=== PATIENT | female | born 1930 | race Caucasian/White ===

== ENCOUNTER 2017-06-27 08:31 | Inpatient (IN) | payer OTHER ==
[~2017-06-27] VITALS: Ht 167.6 cm; Wt 72.0 kg
[~2017-06-27 08:31] MED LIST: ALPRAZOLAM0.25 M2 PO; ALPRAZOLAM0.25 MG PO; ANTIVERT25 MG PO; CARDIZEM CD,CA240 MG PO; CARTIA XT180 MG PO; CIPROFLOXACIN250 MG PO; COUMADIN5 MG PO; CRANBERRY; CRANBERRY400 MG PO; CRANBERRY450 M1 PO; Cardizem CD,Cartia X PO; Cardizem CD,Cartia XT,Tiazac PO; Ceftin PO; Coumadin,Jantoven PO; Cranberry Extract PO; DILACOR PO; DILT PO; DILTIAZEM 24HR120 MG PO; DILTIAZEM 24HR180 MG PO; DILTIAZEM 24HR240 MG PO; FISH OIL CONC1 EACH PO; GABAPENTIN600 MG PO; INDOMETHACIN25 MG PO; KEFLEX500 MG PO; LEVAQUIN500 MG PO; LEVOFLOXACIN750 MG PO; LIDODERM 5% P1 PATCH TD; Lipitor PO; MECLIZINE HCL25 MG PO; METOPROLOL SUCC50 MG PO; NEURONTIN600 MG PO; NEXIUM40 MG PO; NORCO 5/3251 TABLET PO; Neurontin PO; Ocean Nasal 0.65% BOTH NARES; PHENAZOPYRIDIN200 MG PO; PLAVIX75 MG PO; PRAVASTATIN SOD40 MG PO; XANAX0.25 MG PO; XARELTO15 MG PO; Xanax PO; Xarelto PO; ZOFRAN ODT4 MG PO
[2017-06-27 08:59] LABS: HEMATOCRIT 51.4 % (36.0-46.0); MCH 29.7 PG (29.0-34.0); MCHC 32.5 G/DL (30.0-36.0); MCV 91.5 FL (83-99); RBC DIS.WIDTH-CV 13.9 % (11.8-14.6); RBC DIS.WIDTH-SD 47.2 % (39-53); RED BLOOD COUNT 5.62 M/uL (3.80-5.20); WHITE BLOOD COUNT 4.2 K/uL (4.1-10.2)
[2017-06-27 09:24] LABS: TROP-I INTERPRETATION NEGATIVE; TROPONIN-I < 0.01 ng/mL (0.0-0.30)
[2017-06-27 09:26] LABS: CHLORIDE 109 mEq/L (99-109); POTASSIUM 4.8 mEq/L (3.7-5.4); SODIUM 141 mEq/L (136-147)
[2017-06-27 09:28] LABS: GLUCOSE 107 mg/dL (70-99)
[2017-06-27 09:30] LABS: ANION GAP 5 MEQ/L (2-14); TOTAL BILIRUBIN 0.4 mg/dL (0.0-1.0)
[2017-06-27 09:32] LABS: ALKALINE PHOSPHATASE 149 IU/L (3-129); GFR ESTIMATE (CALCULATED) > 59 mL/min/
[2017-06-27 09:33] LABS: UREA NITROGEN (BUN) 12 mg/dL (9-23)
[2017-06-27 10:05] LABS: MEAN PLAT.VOLUME 12.1 uM^3 (9.5-12.4); PLATELET COUNT 229 K/uL (156-360)
[2017-06-27] MEDS ORDERED: DILTIAZEM 24HR360 M1 PO (13:58)
[2017-06-27] MEDS ORDERED: AVENTYL,PAMELOR10 MG PO (14:03)
[2017-06-27] MEDS ORDERED: ESOMEPRAZOLE MA40 MG PO (14:03)
[2017-06-27] MEDS ORDERED: FISH OIL 1,0001 EAC7 PO (14:06)
[2017-06-27 14:48] VITALS: BP 150/80
[2017-06-27 16:09] LABS: TROP-I INTERPRETATION NEGATIVE; TROPONIN-I < 0.01 ng/mL (0.0-0.30)
[2017-06-27 19:15] VITALS: BP 127/96
[2017-06-27 21:26] LABS: TROP-I INTERPRETATION NEGATIVE; TROPONIN-I < 0.01 ng/mL (0.0-0.30)
[2017-06-28 00:17] VITALS: BP 128/74
[2017-06-28 04:10] VITALS: BP 166/82
[2017-06-28 07:23] VITALS: BP 184/98
[2017-06-28 08:34] LABS: HEMATOCRIT 47.2 % (36.0-46.0); MCHC 31.6 G/DL (30.0-36.0); MCV 91.8 FL (83-99); RBC DIS.WIDTH-CV 14.1 % (11.8-14.6); RBC DIS.WIDTH-SD 47.3 % (39-53); RED BLOOD COUNT 5.14 M/uL (3.80-5.20); WHITE BLOOD COUNT 5.1 K/uL (4.1-10.2)
[2017-06-28 08:58] LABS: MEAN PLAT.VOLUME 12.1 uM^3 (9.5-12.4); PLAT.SUFFICIENCY ADEQUATE; PLATELET COUNT 203 K/uL (156-360)
[2017-06-28 09:18] LABS: ANION GAP 5 MEQ/L (2-14); CHLORIDE 107 MEQ/L (99-109); GFR ESTIMATE (CALCULATED) 56 mL/min/; GLUCOSE 97 mg/dL (70-99); POTASSIUM 4.2 MEQ/L (3.7-5.4); SAMPLE HEMOLYSIS CHECK 0; SAMPLE ICTERIC CHECK 0; SAMPLE LIPEMIA CHECK 0; SODIUM 140 MEQ/L (136-147); UREA NITROGEN (BUN) 13 mg/dL (9-23)
[2017-06-28 11:06] VITALS: BP 134/76
[2017-06-28 15:45] VITALS: BP 134/79
[2017-06-28 19:15] VITALS: BP 156/83
[2017-06-29 00:10] VITALS: BP 140/79
[2017-06-29 04:10] VITALS: BP 112/65
[2017-06-29 07:28] VITALS: BP 156/85
[2017-06-29 11:22] VITALS: BP 152/85
[2017-06-29 11:30] VITALS: BP 152/85
[2017-06-29] MEDS ORDERED: ANTIVERT12.5 MG PO (11:37)
== END 2017-06-29 15:13 | disposition home health service (06) | DRG 149 ==
LOC: EME 08:31 → EDOF 11:00 → 4EAST 11:00 → EDOF 11:00 → ENRESERV 11:02 → EDOF 11:48 → ENRESERV 11:49 → 4EAST 14:28 → ENPENDDIS 06-29 → 4EAST 06-29 15:13
PROVIDERS: Internal Medicine; Nurse Practitioner Family
DX: H81.90 Unspecified disorder of vestibular function, unspecified ear (principal); R42 Dizziness and giddiness; I48.0 Paroxysmal atrial fibrillation; H93.19 Tinnitus, unspecified ear; J32.0 Chronic maxillary sinusitis; G51.0 Bell's palsy; G62.9 Polyneuropathy, unspecified; I10 Essential (primary) hypertension; F41.9 Anxiety disorder, unspecified; J45.909 Unspecified asthma, uncomplicated; K21.9 Gastro-esophageal reflux disease without esophagitis; Z79.01 Long term (current) use of anticoagulants; Z85.828 Personal history of other malignant neoplasm of skin; Z80.3 Family history of malignant neoplasm of breast
CPT/HCPCS: 70450; 70551; 71010; 80048; 80053; 84484; 85027; 93005; 93880; 99281; 99285; G0378; G8978 GP CH; G8979 GP CH; G8980 GP CH; J2405; J7030

== ENCOUNTER 2017-09-06 07:04 | Emergency (ER) | payer OTHER ==
[~2017-09-06] VITALS: Ht 167.6 cm; Wt 73.7 kg
[~2017-09-06 07:04] MED LIST changes: +ANTIVERT12.5 MG PO; +AVENTYL,PAMELOR10 MG PO; +DILTIAZEM 24HR360 M1 PO; +ESOMEPRAZOLE MA40 MG PO; +FISH OIL 1,0001 EAC7 PO
[2017-09-06 07:43] LABS: HEMATOCRIT 46.9 % (36.0-46.0); MCHC 32.2 G/DL (30.0-36.0); MCV 93.1 FL (83-99); MEAN PLAT.VOLUME 11.9 uM^3 (9.5-12.4); PLATELET COUNT 183 K/uL (156-360); RBC DIS.WIDTH-CV 14.6 % (11.8-14.6); RBC DIS.WIDTH-SD 49.7 % (39-53); RED BLOOD COUNT 5.04 M/uL (3.80-5.20); WHITE BLOOD COUNT 4.2 K/uL (4.1-10.2)
[2017-09-06 07:51] LABS: CHLORIDE 110 mEq/L (99-109); POTASSIUM 4.4 mEq/L (3.7-5.4); SODIUM 141 mEq/L (136-147)
[2017-09-06 07:53] LABS: GLUCOSE 112 mg/dL (70-99)
[2017-09-06 07:54] LABS: ANION GAP 6 MEQ/L (2-14)
[2017-09-06 07:57] LABS: GFR ESTIMATE (CALCULATED) 56 mL/min/
[2017-09-06 07:58] LABS: UREA NITROGEN (BUN) 14 mg/dL (9-23)
[2017-09-06 07:58] LABS: ADD MIUA? YES; BILIRUBIN NEGATIVE; BLOOD NEGATIVE; COLOR STRAW ((YELLOW)); GLUCOSE (STRIP) NEGATIVE; KETONES NEGATIVE; LEUKOCYTES TRACE; NITRITE NEGATIVE; PROTEIN (STRIP) NEGATIVE; SPECIFIC GRAVITY 1.008 (1.000-1.030); UROBILINOGEN 0.2 MG/DL (0.2-1.0)
[2017-09-06 08:00] LABS: BACTERIA NONE SEEN /HPF; EPITHELIAL CELLS NONE SEEN /HPF; MUCUS NONE SEEN /LPF; RED BLOOD CELLS 0-5 /HPF (0-5); WHITE BLOOD CELLS 0-5 /HPF (0-5)
[2017-09-06] MEDS ORDERED: KEFLEX500 MG PO (08:18)
[2017-09-06] MEDS ORDERED: MECLIZINE HCL25 MG PO (08:18)
[2017-09-06] MEDS ORDERED: VALIUM5 MG PO (08:18)
[2017-09-06 08:54] VITALS: BP 169/96
== END 2017-09-06 08:55 | disposition home or self-care (01) ==
LOC: EME 07:04
PROVIDERS: Emergency Medicine
DX: R42 Dizziness and giddiness (principal); N39.0 Urinary tract infection, site not specified; J45.909 Unspecified asthma, uncomplicated; K21.9 Gastro-esophageal reflux disease without esophagitis; Z85.828 Personal history of other malignant neoplasm of skin; F41.9 Anxiety disorder, unspecified; Z97.4 Presence of external hearing-aid
CPT/HCPCS: 80048; 81003; 85027; 99281; 99284